=== PATIENT | female | born 2000 | race African-American/Black ===

== ENCOUNTER 2024-09-26 20:08 | Emergency (ER) | payer MEDICAID ==
[~2024-09-26] VITALS: Ht 170.2 cm; Wt 65.0 kg
[2024-09-26 20:15] VITALS: O2SAT 100
[2024-09-26 21:00] LABS: BASOPHILS % 1.5 % (0.0-2.0); DIFFERENTIAL COMMENT 0; EOSINOPHILS % 0.5 % (0.0-5.0); HEMATOCRIT. 33.7 % (36.0-48.0); HEMOGLOBIN. 10.8 g/dL (12.0-16.0); LYMPHOCYTES % 42.9 % (20.0-50.0); MEAN CORPUSCULAR HEMOGLOBIN 24.9 pg (28.0-32.0); MEAN CORPUSCULAR VOLUME 77.9 fL (81.0-99.0); MEAN PLATELET VOLUME 8.6 fl (7.4-10.4); MONOCYTES % 10.8 % (2.0-8.0); NEUTROPHILS % 44.3 % (40.0-76.0); PLATELET 277 x1000/uL (130-400); RED BLOOD CELL COUNT 4.32 mill/uL (4.2-5.4); RED CELL DISTRIBUTION WIDTH 15.7 % (11.6-14.6); WHITE BLOOD COUNT 4.4 x1000/uL (4.5-11.0)
[2024-09-26 21:09] LABS: CHLORIDE 108 mEq/L (98-107); POTASSIUM 3.9 mEq/L (3.5-5.1); SODIUM 137 mEq/L (136-145)
[2024-09-26 21:10] LABS: CARBON DIOXIDE 25 mEq/L (21-32)
[2024-09-26 21:11] LABS: CALCIUM 8.9 mg/dL (8.7-10.4)
[2024-09-26 21:15] LABS: CREATININE 0.7 mg/dL (0.6-1.0); GLUCOSE 97 mg/dL (70-105)
[2024-09-26 21:16] LABS: UREA NITROGEN BLOOD 8 mg/dL (9-23)
[2024-09-26 21:18] LABS: B-HCG QUANTITATIVE 1 mIU/mL (<6)
[2024-09-26] MEDS ORDERED: FERR324T4 MT (23:27)
[2024-09-26 23:37] VITALS: BP 118/59; PULSE 68; RESP 20; TEMP 36.7; O2SAT 100
== END 2024-09-26 23:38 | disposition home or self-care (01) ==
LOC: ER 20:08
DX: D50.9 Iron deficiency anemia, unspecified (principal); N93.8 Other specified abnormal uterine and vaginal bleeding
CPT/HCPCS: 36415; 76830; 76856; 80048; 84702; 85025; 86850; 86900; 99284